=== PATIENT | male | born 1990 | race Caucasian/White ===

== ENCOUNTER 2017-09-04 12:07 | Emergency (ER) | payer SELFPAY ==
[~2017-09-04] VITALS: Ht 167.6 cm; Wt 59.1 kg
[2017-09-04 12:09] VITALS: BP 135/77; PULSE 89; TEMP 98.9
== END 2017-09-04 13:14 | disposition home or self-care (01) ==
LOC: COL.ER 12:07
DX: S63.502A Unspecified sprain of left wrist, initial encounter (principal); W18.39XA Other fall on same level, initial encounter; Y92.009 Unspecified place in unspecified non-institutional (private) residence as the place of occurrence of the external cause